=== PATIENT | male | born 1970 | race Caucasian/White ===

== ENCOUNTER 2021-07-23 14:05 | Emergency (ER) | payer BC, OTHER ==
[2021-07-23 17:48] LABS: SARS-COV-2 RT PCR POSITIVE (NEGATIVE)
--- NOTE | 2021-07-23 18:25 | EDPHYS ---
Physician Documentation [facility] Name: Sonu Florez Age: 51 yrs Sex: Male : 1970 Arrival Date: 07/23/2021 Time: 14:10 Bed 10 Private MD: ED Physician Dayanara Correa HPI: 07/23 15:51 This 51 yrs old Male presents to ER via Ambulatory with complaints of Cough, cp Covid Test. 15:51 The patient or guardian reports cough, that is intermittent, with productive sputum. cp Onset: The symptoms/episode began/occurred 5 day(s) ago. Associated signs and symptoms: Pertinent negatives: chest pain, diarrhea, fever, sore throat, vomiting. Patient reports spouse recently tested positive for COVID-19. Historical: - Allergies: 15:49 No Known Allergies; iw ROS: 15:52 Eyes: Negative for injury, pain, redness, and discharge. cp 15:52 Constitutional: Negative for body aches, chills, fever, poor PO intake. 15:52 ENT: Negative for ear pain, sore throat, difficulty swallowing, difficulty handling secretions. 15:52 Cardiovascular: Negative for chest pain, edema, palpitations. 15:52 Respiratory: Positive for cough, Negative for shortness of breath, wheezing. 15:52 Abdomen/GI: Negative for abdominal pain, nausea, vomiting, and diarrhea. 15:52 Skin: Negative for rash. 15:52 Neuro: Negative for altered mental status, headache, weakness. 15:52 All other systems are negative. Exam: 15:53 Head/Face: Normocephalic, atraumatic. cp 15:53 Constitutional: The patient appears in no acute distress, alert, awake, comfortable, non-diaphoretic, non-toxic, well developed, well nourished. 15:53 Eyes: Periorbital structures: appear normal, Conjunctiva: normal, no exudate, no injection, Sclera: no appreciated abnormality, Lids and lashes: appear normal, bilaterally. 15:53 ENT: External ear(s): are unremarkable, Nose: is normal, Mouth: Lips: moist, Oral mucosa: moist, Posterior pharynx: Airway: no evidence of obstruction, patent. 15:53 Neck: ROM/movement: is normal, is supple, without pain, no range of motions limitations. 15:53 Chest/axilla: Inspection: normal, Palpation: is normal, no crepitus, no tenderness. 15:53 Cardiovascular: Rate: normal, Rhythm: regular. 15:53 Respiratory: the patient does not display signs of respiratory distress, Respirations: normal, no use of accessory muscles, no retractions, labored breathing, is not present, Breath sounds: are clear throughout, no decreased breath sounds, no stridor, no wheezing. 15:53 Abdomen/GI: Exam negative for discomfort, distension, guarding, Inspection: abdomen appears normal. Vital Signs: 15:47 BP 137 / 104; Pulse 74; Resp 20; Temp 98.4; Pulse Ox 98% on R/A; iw MDM: 07/22 17:00 Differential Diagnosis: Bronchitis Influenza Upper Respiratory Infection Sinusitis cp Viral Syndrome Pneumonia. 07/23 18:21 Patient medically screened. cp 18:24 Data reviewed: vital signs, nurses notes, lab test result(s). cp 18:24 Counseling: I had a detailed discussion with the patient and/or guardian regarding: the cp historical points, exam findings, and any diagnostic results supporting the discharge/admit diagnosis, lab results, to return to the emergency department if symptoms worsen or persist or if there are any questions or concerns that arise at home. ED course: VSS. Patient appears non-toxic and no signs of respiratory distress. Will discharge to home for continued monitoring. 07/23 16:16 Order name: COVID-19 : Document "Date of Symptom Onset" if Symptomatic. 07/23 16:16 Order name: Influenza Screen (a \\T\\ B) 07/23 16:44 Order name: [facility] 07/23 16:49 Order name: Influenza Screen (A ; Complete Time: 18:22 EDWA 07/23 17:48 Order name: COVID-19/FLU A+B; Complete Time: 18:22 EDMS Administered Medications: No medications were administered Disposition Summary: 07/23/21 18:24 Discharge Ordered Location: Home cp Problem: new cp Symptoms: are unchanged cp Condition: Stable cp Diagnosis - SARS-associated coronavirus as the cause of diseases classified elsewhere cp Followup: cp - With: Private Physician - When: 2 - 3 days - Reason: Worsening of condition Discharge Instructions: - Discharge Summary Sheet cp - COVID-19 cp - Things to Know about the COVID-19 Pandemic - [facility] cp - 10 Things You Can Do to Manage Your COVID-19 Symptoms at Home - [facility] cp - COVID-19: Quarantine vs. Isolation - [facility] cp - Prevent the Spread of COVID-19 if You Are Sick - [facility] cp Forms: - Medication Reconciliation Form cp - Thank You Letter cp - Antibiotic Education cp - Prescription Opioid Use cp Addendum: 07/25/2021 08:58 Co-signature as Attending Physician, Dayanara Correa MD I agree with the assessment and s p3 plan of care. Signatures: Dispatcher [employer] Melvi Gale RN RN Ace Watson PA PA Dayanara Cano MD MD sp3
--- NOTE | 2021-07-23 18:25 | ER ---
Nurse's Notes [facility] Name: Sonu Florez Age: 51 yrs Sex: Male : 1970 Arrival Date: 07/23/2021 Time: 14:10 Bed 10 Private MD: Diagnosis: SARS-associated coronavirus as the cause of diseases classified elsewhere Presentation: 07/23 15:47 Chief complaint: Patient states: cough, body aches , tested positive, symptoms iw started 4-5 days. Coronavirus screen: Client presents with at least one sign or symptom that may indicate coronavirus-19. Ebola Screen: Patient negative for fever greater than or equal to 101.5 degrees Fahrenheit, and additional compatible Ebola Virus Disease symptoms Patient denies exposure to infectious person. Patient denies travel to an Ebola-affected area in the 21 days before illness onset. No symptoms or risks identified at this time. Initial Sepsis Screen: Does the patient meet any 2 criteria? No. Patient's initial sepsis screen is negative. Does the patient have a suspected source of infection? No. Patient's initial sepsis screen is negative. Risk Assessment: Do you want to hurt yourself or someone else? Patient reports no desire to harm self or others. Onset of symptoms was July 19, 2021. 15:47 Method Of Arrival: Ambulatory iw 15:47 Acuity: LESTER 4 iw Historical: - Allergies: 15:49 No Known Allergies; iw Vital Signs: 15:47 BP 137 / 104; Pulse 74; Resp 20; Temp 98.4; Pulse Ox 98% on R/A; iw ED Course: 14:10 Patient arrived in ED. mr 15:19 Ace Iraheta PA is PHCP. cp 15:19 Dayanara Correa MD is Attending Physician. cp 15:49 Triage completed. iw 18:30 Melvi Raman RN is Primary Nurse. iw Administered Medications: No medications were administered Outcome: 18:24 Discharge ordered by . cp 18:30 Patient left the ED. iw Signatures: Kendall Crystal mr Melvi Raman, RN RN iw Ace Iraheta PA PA cp
[2021-07-23 19:45] VITALS: BP 137/104; TEMP 98.4; O2SAT 98
== END 2021-07-23 18:30 | disposition home or self-care (01) ==
LOC: ER 14:05
DX: U07.1 COVID-19 (principal)
CPT/HCPCS: 0240U; 87804 ×2; 99281